=== PATIENT | female | born 2000 | race Caucasian/White ===

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

== ENCOUNTER 2020-09-07 17:53 | Emergency (ER) | payer BC ==
[2020-09-07 20:16] LABS: MONO NEGATIVE CONTROL ZONE White (Negative) (White); MONO POSITIVE CONTROL Pink Line (Positive) (PINK/RED); Mononucleosis POSITIVE (NEGATIVE)
[2020-09-07 20:17] LABS: Hemoglobin 14.1 g/dL (12.0-16.0); Mean Corpuscular Volume 91.1 fL (78.0-98.0); Mean Platelet Volume 7.6 fL (7.4-10.4); Platelet Count 268 thou/uL (130-400); RBC Distribution Width 11.7 % (11.5-14.5); White Blood Cell (WBC) Count 13.7 thou/uL (4.8-10.8)
[2020-09-07 20:31] LABS: Band 1 % (5-11); Lymphocytes 63 % (21-51); MDiff Complete? YES; Monocytes 3 % (0-10); Neutrophil 15 % (42-75); Platelet Morphology Comment Appears Adequate; RBC Morphology Normal; Reactive Lymphocytes 16 % (0-10)
[2020-09-07 20:36] LABS: ALT (SGPT) 358 U/L (8-55); AST (SGOT) 147 U/L (5-34); Albumin 3.8 g/dL (3.5-5.0); Alkaline Phosphatase 251 U/L (40-110); Anion Gap 18 mmol/L (10-20); BUN (Urea Nitrogen) 8 mg/dL (7.0-18.7); Bilirubin, Total 0.6 mg/dL (0.2-1.2); Calc. Creatinine Clearance 0 mL/min (70-130); Calcium 9.2 mg/dL (7.8-10.44); Carbon Dioxide 20 mmol/L (22-29); Chloride 105 mmol/L (98-107); Globulin 4.3 g/dL (2.4-3.5); Glucose 82 mg/dL (70-105); Potassium 4.1 mmol/L (3.5-5.1); Protein, Total 8.1 g/dL (6.0-8.3); Sodium 139 mmol/L (136-145)
[2020-09-07] MEDS ORDERED: diphenhydrAMINE 25 MG CAP ONE (21:47)
== END 2020-09-07 21:35 | disposition home or self-care (01) ==
LOC: ERS 17:53
DX: B27.90 Infectious mononucleosis, unspecified without complication (principal); R59.0 Localized enlarged lymph nodes
CPT/HCPCS: 36415; 80053; 85025; 86308; 99283; Q0163